=== PATIENT | female | born 1995 | race Hispanic/Latino ===

== ENCOUNTER 2017-05-02 18:27 | Observation (INO) | payer MEDICAID ==
[~2017-05-02] VITALS: Ht 154.9 cm; Wt 108.0 kg
[2017-05-02 18:42] VITALS: BP 124/65
[2017-05-02 19:06] LABS: APPEARANCE,URINE Clear (CLEAR); BILIRUBIN,URINE Negative (NEGATIVE); COLOR,URINE Dark Yellow (YELLOW); GLUCOSE, URINE (UA) Negative (NEGATIVE); KETONES,URINE Trace mg/dL (NEGATIVE); LEUKOCYTE ESTERASE ,URINE Negative (NEGATIVE); NITRATE,URINE Negative (NEGATIVE); OCCULT BLOOD,URINE Small (NEGATIVE); PH,URINE 5.5 (5.0-8.0); PROTEIN,URINE Trace (NEGATIVE)
[2017-05-02 19:25] LABS: WBC,URINE 0-1 /HPF (0-1)
[2017-05-02 19:26] LABS: BACTERIA,URINE Rare /HPF (None Seen); MUCUS,URINE Rare LPF (None Seen); SQUAMOUS EPITHELIAL CELL,UR Few /LPF (0-2)
[2017-05-02] MEDS ORDERED: LACTATED RINGERS 1000ML IV STA (19:51)
[2017-05-02] MEDS ORDERED: PREN1TAB89 PO (19:56)
[2017-05-02] MEDS ORDERED: CEFTRIAXONE SODIUM 500 MG VIAL IM SCH (20:00)
[2017-05-02] MEDS ORDERED: LIDOCAINE HCL-MPF 1% 2ML VIAL IM SCH (20:15)
[2017-05-02] MEDS ORDERED: LACTATED RINGERS 1000ML 1,000 ML IV SCH (21:00)
== END 2017-05-02 22:40 | disposition home or self-care (01) ==
LOC: EDH 18:27 → LDH 18:44
PROVIDERS: ADMIT Internal Medicine; ATTEND Internal Medicine
DX: O26.892 Other specified pregnancy related conditions, second trimester (principal); O23.42 Unspecified infection of urinary tract in pregnancy, second trimester; E86.0 Dehydration; R10.2 Pelvic and perineal pain; R10.30 Lower abdominal pain, unspecified; M25.552 Pain in left hip; M25.551 Pain in right hip; Z3A.27 27 weeks gestation of pregnancy
CPT/HCPCS: 81001; 96360; 96361; 96372 ×2; 99285; G0378 ×4; J0696; J3490

== ENCOUNTER 2017-05-08 19:36 | Observation (INO) | payer MEDICAID ==
[~2017-05-08] VITALS: Ht 154.9 cm; Wt 107.0 kg
[~2017-05-08 19:36] MED LIST: PREN1TAB89 PO
[2017-05-08] MEDS ORDERED: PREN-196 PO (19:48)
[2017-05-08 20:07] LABS: APPEARANCE,URINE Clear (CLEAR); BILIRUBIN,URINE Small (NEGATIVE); COLOR,URINE Dark Yellow (YELLOW); GLUCOSE, URINE (UA) Negative (NEGATIVE); KETONES,URINE Trace mg/dL (NEGATIVE); LEUKOCYTE ESTERASE ,URINE Negative (NEGATIVE); NITRATE,URINE Negative (NEGATIVE); OCCULT BLOOD,URINE Small (NEGATIVE); PROTEIN,URINE Negative (NEGATIVE)
[2017-05-08 20:13] LABS: AMPHET/METH SCREEN,URINE NEGATIVE (NEGATIVE); BARBITURATE SCREEN, URINE NEGATIVE (NEGATIVE); BENZODIAZEPINES SCREEN,URINE NEGATIVE (NEGATIVE); CANNABINOID SCREEN,URINE NEGATIVE (NEGATIVE); COCAINE SCREEN,URINE NEGATIVE (NEGATIVE); OPIATE SCREEN,URINE NEGATIVE (NEGATIVE); PHENCYCLIDINE SCREEN,URINE NEGATIVE (NEGATIVE)
[2017-05-08 20:15] LABS: BACTERIA,URINE None Seen /HPF (None Seen); WBC,URINE None Seen /HPF (0-1)
[2017-05-08] MEDS ORDERED: ACETAMINOPHEN EXTRA STRENGTH 500 MG TABLET PO SCH (20:45)
[2017-05-08] MEDS: LACTATED RINGERS 1000ML 1,000 ML IV SCH ×2 (20:54→21:40)
== END 2017-05-08 23:15 | disposition home or self-care (01) ==
LOC: EDH 19:36 → LDH 19:46
PROVIDERS: ADMIT Internal Medicine; ATTEND Internal Medicine
DX: O26.893 Other specified pregnancy related conditions, third trimester (principal); R10.9 Unspecified abdominal pain; M54.9 Dorsalgia, unspecified; Z86.59 Personal history of other mental and behavioral disorders; Z3A.28 28 weeks gestation of pregnancy
CPT/HCPCS: 80305; 81001; 96360; 96361; 99285; G0378 ×3; J7120 ×2

== ENCOUNTER 2017-06-23 20:02 | Observation (INO) | payer MEDICAID ==
[~2017-06-23] VITALS: Ht 154.9 cm; Wt 107.0 kg
[~2017-06-23 20:02] MED LIST changes: +PREN-196 PO
[2017-06-23 20:48] LABS: APPEARANCE,URINE Clear (CLEAR); BILIRUBIN,URINE Negative (NEGATIVE); COLOR,URINE Yellow (YELLOW); GLUCOSE, URINE (UA) Negative (NEGATIVE); KETONES,URINE Negative (NEGATIVE); LEUKOCYTE ESTERASE ,URINE Negative (NEGATIVE); NITRATE,URINE Negative (NEGATIVE); OCCULT BLOOD,URINE Negative (NEGATIVE); PH,URINE 6.5 (5.0-8.0); PROTEIN,URINE Negative (NEGATIVE)
[2017-06-23] MEDS ORDERED: LACTATED RINGERS 1000ML 1,000 ML IV SCH (21:00)
[2017-06-23] MEDS ORDERED: MAGNESIUM SULFATE 1,000 ML IV PRN (21:35)
[2017-06-23] MEDS ORDERED: CALCIUM GLUCONATE 1 GM/10 ML VIAL IV PRN (21:45)
[2017-06-23] MEDS ORDERED: MAGNESIUM 4GM PREMIX 100ML 100 ML IV SCH (21:45)
[2017-06-23] MEDS: AMPICILLIN 2GM+NS 100ML 100 ML IV SCH (22:44)
[2017-06-24] MEDS: DEXAMETHASONE SOD PHOSPHATE 4 MG/ML 1ML VIAL IM SCH ×4 (00:12→17:05)
[2017-06-24] MEDS ORDERED: LACTATED RINGERS 1000ML 1,000 ML IV PRN (02:57)
[2017-06-24 03:24] LABS: HEMATOCRIT 28.4 % (36-48); MEAN CORPUSCULAR HEMOGLOBIN 24.2 pg (27.0-33.0); MEAN CORPUSCULAR HGB CONC 33.6 g/dL (32.0-36.0); PLATELET COUNT (AUTO) 184 K/uL (130-400); RED BLOOD CELL COUNT(AUTO) 3.95 MIL/uL (4.00-5.50); RED CELL DISTRIBUTION WIDTH 15.2 % (11.0-15.5); WHITE BLOOD COUNT (AUTO) 12.2 K/uL (4.8-10.8)
[2017-06-24 03:40] LABS: AMPHET/METH SCREEN,URINE NEGATIVE (NEGATIVE); BARBITURATE SCREEN, URINE NEGATIVE (NEGATIVE); BENZODIAZEPINES SCREEN,URINE NEGATIVE (NEGATIVE); CANNABINOID SCREEN,URINE NEGATIVE (NEGATIVE); COCAINE SCREEN,URINE NEGATIVE (NEGATIVE); OPIATE SCREEN,URINE NEGATIVE (NEGATIVE); PHENCYCLIDINE SCREEN,URINE NEGATIVE (NEGATIVE)
[2017-06-24] MEDS: AMPICILLIN 2GM+NS 100ML 100 ML IV SCH (05:06)
[2017-06-24 14:20] LABS: RAPID PLASMA REAGIN NONREACTIVE (NONREACTIVE)
[2017-06-24] MEDS ORDERED: MORPHINE SULFATE 5 MG/ML VIAL SQ PRN (16:00)
[2017-06-25 06:15] LABS: HEPATITIS Bs ANTIGEN SCREEN P Negative (Negative)
== END 2017-06-24 18:10 | disposition home or self-care (01) ==
LOC: EDH 20:02 → LDH 20:03
PROVIDERS: ADMIT Internal Medicine; ATTEND Internal Medicine
DX: O26.893 Other specified pregnancy related conditions, third trimester (principal); R10.9 Unspecified abdominal pain; M54.9 Dorsalgia, unspecified; O60.03 Preterm labor without delivery, third trimester; Z86.59 Personal history of other mental and behavioral disorders; Z3A.34 34 weeks gestation of pregnancy
CPT/HCPCS: 36415; 80305; 81003; 83735; 85027; 86592; 86701; 86850; 86900; 86901; 87340; 87390; 96361; 96365; 96366; 96368; 96372; 96375 ×2; 99285; A4344; G0378 ×22; J0290 ×2; J1100 ×4; J3475 ×2; J7120 ×4; 96360

== ENCOUNTER 2017-07-14 01:13 | Inpatient (IN) | payer MEDICAID ==
[~2017-07-14] VITALS: Ht 154.9 cm; Wt 106.1 kg
[2017-07-14 01:51] LABS: APPEARANCE,URINE Cloudy (CLEAR); BILIRUBIN,URINE Negative (NEGATIVE); COLOR,URINE Dark Yellow (YELLOW); GLUCOSE, URINE (UA) Negative (NEGATIVE); KETONES,URINE Negative (NEGATIVE); LEUKOCYTE ESTERASE ,URINE Negative (NEGATIVE); NITRATE,URINE Negative (NEGATIVE); OCCULT BLOOD,URINE Negative (NEGATIVE); PROTEIN,URINE Trace (NEGATIVE)
[2017-07-14 02:22] LABS: CALCIUM OXALATE CRYSTALS,UR Many /LPF (None Seen); RBC,URINE None Seen /HPF (0-1)
[2017-07-14 02:23] LABS: BACTERIA,URINE Few /HPF (None Seen); WBC,URINE 0-1 /HPF (0-1)
[2017-07-14] MEDS ORDERED: LACTATED RINGERS 1000ML 1,000 ML IV PRN (02:32)
[2017-07-14] MEDS ORDERED: ROPIVACAINE 0.2%200ML EPIDURAL 200 ML EP SCH (02:45)
[2017-07-14] MEDS ORDERED: MEPERIDINE-PF 50 MG/ML SYG IVP PRN (02:45)
[2017-07-14] MEDS ORDERED: NALOXONE HCL 0.4 MG/1 ML ML IV PRN (02:45)
[2017-07-14] MEDS ORDERED: LACTATED RINGERS 500 ML 500 ML IV PRN (02:45)
[2017-07-14] MEDS ORDERED: PROMETHAZINE HCL 25 MG/ML 1ML AMPULE IM PRN (02:45)
[2017-07-14] MEDS ORDERED: AMPICILLIN 2GM+NS 100ML 100 ML IV SCH (02:45)
[2017-07-14] MEDS ORDERED: EPHEDRINE SULFATE 50 MG/ML AMPULE IVP PRN (02:45)
[2017-07-14] MEDS ORDERED: AMPICILLIN 2GM+NS 100ML 100 ML IV ONE (03:10)
[2017-07-14 03:56] LABS: HEMATOCRIT 28.4 % (36-48); MEAN CORPUSCULAR HEMOGLOBIN 22.7 pg (27.0-33.0); MEAN CORPUSCULAR HGB CONC 32.9 g/dL (32.0-36.0); MEAN CORPUSCULAR VOLUME 69.1 fL (79-99); PLATELET COUNT (AUTO) 220 K/uL (130-400); RED BLOOD CELL COUNT(AUTO) 4.11 MIL/uL (4.00-5.50); RED CELL DISTRIBUTION WIDTH 15.8 % (11.0-15.5); WHITE BLOOD COUNT (AUTO) 13.5 K/uL (4.8-10.8)
[2017-07-14 04:57] LABS: AMPHET/METH SCREEN,URINE NEGATIVE (NEGATIVE); BARBITURATE SCREEN, URINE NEGATIVE (NEGATIVE); BENZODIAZEPINES SCREEN,URINE NEGATIVE (NEGATIVE); CANNABINOID SCREEN,URINE NEGATIVE (NEGATIVE); COCAINE SCREEN,URINE NEGATIVE (NEGATIVE); OPIATE SCREEN,URINE NEGATIVE (NEGATIVE); PHENCYCLIDINE SCREEN,URINE NEGATIVE (NEGATIVE)
[2017-07-14] MEDS: AMPICILLIN 1GM+NS 50ML 50 ML IV SCH ×2 (08:02→11:46)
[2017-07-14] MEDS ORDERED: OXYTOCIN 10 USP UNITS/ML 20 UNIT in LACTATED RINGERS 1000ML 1,000 ML IV SCH (11:00)
[2017-07-14] MEDS ORDERED: LACTATED RINGERS 1000ML 1,000 ML IV ONE ×2 (11:20→19:54)
[2017-07-14] MEDS ORDERED: OXYTOCIN 10 USP UNITS/ML ONE ×2 (11:21→19:54)
[2017-07-14 11:26] LABS: RAPID PLASMA REAGIN NONREACTIVE (NONREACTIVE)
[2017-07-14] MEDS ORDERED: LANOLIN 30GM OINTMENT TP PRN (18:00)
[2017-07-14] MEDS ORDERED: MEASLES/MUMPS/RUBELLA VACCINE, LIVE 0.5 ML/VIAL SQ PRN (18:00)
[2017-07-14] MEDS ORDERED: ACETAMINOPHEN 325 MG TAB PO PRN (18:00)
[2017-07-14] MEDS ORDERED: DIPH,PERTUSS(ACELL),TET VAC/PF 0.5 ML VIAL IM PRN (18:00)
[2017-07-14] MEDS ORDERED: HYDROCODONE/ACETAMINOPHEN 5/325 MG TAB PO PRN (18:00)
[2017-07-14] MEDS ORDERED: WITCH HAZEL 1 PAD TP PRN (18:00)
[2017-07-14] MEDS ORDERED: BENZOCAINE/LANOLIN/ALOE VERA 60 ML AEROSOL TP PRN (18:00)
[2017-07-14] MEDS ORDERED: ACETAMINOPHEN-CODEINE 300/30MG TAB PO PRN (18:00)
[2017-07-14] MEDS: OXYTOCIN-LR 20 UNITS/1000 ML 1,000 ML IV SCH (18:00)
[2017-07-14] MEDS ORDERED: IBUPROFEN 800 MG TAB PO PRN (18:00)
[2017-07-14 20:37] VITALS: BP 120/74
[2017-07-14] MEDS: DOCUSATE SODIUM 100 MG CAP PO SCH (21:06)
[2017-07-14 23:17] VITALS: BP 124/79
[2017-07-15] MEDS: IBUPROFEN 600 MG TABLET PO PRN ×4 (03:53→23:31)
[2017-07-15 03:55] VITALS: BP 107/57
[2017-07-15] MEDS: AMPICILLIN 1GM+NS 50ML 50 ML IV SCH (06:45)
[2017-07-15 06:52] LABS: HEMATOCRIT 28.8 % (36-48); MEAN CORPUSCULAR HGB CONC 33.5 g/dL (32.0-36.0); MEAN CORPUSCULAR VOLUME 68.8 fL (79-99); PLATELET COUNT (AUTO) 190 K/uL (130-400); RED BLOOD CELL COUNT(AUTO) 4.18 MIL/uL (4.00-5.50); RED CELL DISTRIBUTION WIDTH 16.1 % (11.0-15.5)
[2017-07-15 07:19] VITALS: BP 114/66
[2017-07-15] MEDS: DOCUSATE SODIUM 100 MG CAP PO SCH ×2 (09:28→21:05)
[2017-07-15 11:23] VITALS: BP 110/57
[2017-07-15 15:17] VITALS: BP 122/66
[2017-07-15] MEDS: OXYTOCIN-LR 20 UNITS/1000 ML 1,000 ML IV SCH (18:00)
[2017-07-15 19:36] VITALS: BP 106/52
[2017-07-15 23:14] VITALS: BP 109/60
[2017-07-16 04:00] VITALS: BP 111/68
[2017-07-16 04:14] LABS: HEPATITIS Bs ANTIGEN SCREEN P Negative (Negative)
[2017-07-16 07:33] VITALS: BP 112/63
[2017-07-16] MEDS: IBUPROFEN 600 MG TABLET PO PRN (07:51)
[2017-07-16] MEDS: DOCUSATE SODIUM 100 MG CAP PO SCH (09:00)
[2017-07-16 11:13] VITALS: BP 133/68
== END 2017-07-16 14:50 | disposition home or self-care (01) | DRG 560 ==
LOC: EDH 01:13 → OBSVTOIN 01:14 → LDH 01:14 → WSH 20:10
PROVIDERS: ADMIT Internal Medicine; ATTEND Internal Medicine
PROC: 0HQ9XZZ Repair Perineum Skin, External Approach (ICD-10-PCS; principal; 2017-07-14)
PROC: 10E0XZZ Delivery of Products of Conception, External Approach (ICD-10-PCS; 2017-07-14)
PROC: 3E0R3BZ Introduction of Anesthetic Agent into Spinal Canal, Percutaneous Approach (ICD-10-PCS; 2017-07-14)
PROC: 00HU33Z Insertion of Infusion Device into Spinal Canal, Percutaneous Approach (ICD-10-PCS; 2017-07-14)
PROC: 3E0234Z Introduction of Serum, Toxoid and Vaccine into Muscle, Percutaneous Approach (ICD-10-PCS; 2017-07-14)
PROC: 3E0234Z Introduction of Serum, Toxoid and Vaccine into Muscle, Percutaneous Approach (ICD-10-PCS; 2017-07-14)
PROC: 10907ZC Drainage of Amniotic Fluid, Therapeutic from Products of Conception, Via Natural or Artificial Opening (ICD-10-PCS; 2017-07-14)
DX: O99.214 Obesity complicating childbirth (principal); Z68.41 Body mass index [BMI] 40.0-44.9, adult; E66.01 Morbid (severe) obesity due to excess calories; O70.0 First degree perineal laceration during delivery; Z37.0 Single live birth; Z3A.37 37 weeks gestation of pregnancy
CPT/HCPCS: 36415; 80305; 81001; 85027; 86592; 86701; 86850; 86900; 86901; 87340; 87390; A4314; A4606; J0290; J2175; J2550; J2590; J7120